=== PATIENT | female | born 1985 | race Hispanic/Latino ===

== ENCOUNTER 2018-11-17 12:17 | Emergency (ER) | payer OTHER ==
[2018-11-17 12:37] VITALS: TEMP 98.4
[2018-11-17] MEDS ORDERED: Sodium Chloride 0.9% 1,000 ML IV STA (13:20)
--- NOTE | 2018-11-17 13:23 | ED PDOC ---
HPI: Female Pain Time Seen by Provider: 11/17/18 13:08 Chief Complaint (Nursing): Female Genitourinary Chief Complaint (Provider): Pelvic cramps History Per: Patient History/Exam Limitations: no limitations Onset/Duration Of Symptoms: Days () Current Symptoms Are (Timing): Better Additional Complaint(s): Pt. with pelvic cramping and vaginal bleeding, worse today. Dr. Draper sent pt. to the ER for eval. Had US and blood work 2 weeks ago and US showed 2 weeks off dates. Had bhcg in last day or so and is 5000 points less then 2 weeks ago. No weakness, dizziness, dysuria, back pain, headaches. Past Medical History Reviewed: Nursing Documentation, Vital Signs Vital Signs: Last Vital Signs Temp 98.4 F 11/17/18 12:30 Pulse 123 H 11/17/18 12:30 Resp 16 11/17/18 12:30 BP 119/76 11/17/18 12:30 Pulse Ox 99 11/17/18 12:30 Primary Care Provider: Kush Draper - Medical History PMH: No Chronic Diseases - Surgical History Surgical History: No Surg Hx - Family History Family History: States: Unknown Family Hx - Allergies Allergies/Adverse Reactions: Allergies Allergy/AdvReac Type Severity Reaction Status Date / Time Sulfa (Sulfonamide Allergy RASH Verified 11/17/18 12:53 Antibiotics) Review of Systems ROS Statement: Except As Marked, All Systems Reviewed And Found Negative Genitourinary Female: Positive for: Vaginal Bleeding, Pelvic Pain Physical Exam - Reviewed Nursing Documentation Reviewed: Yes Vital Signs Reviewed: Yes - Physical Exam Appears: Positive for: Non-toxic, No Acute Distress Head Exam: Positive for: ATRAUMATIC, NORMAL INSPECTION, NORMOCEPHALIC Skin: Positive for: Normal Color, Warm, DRY Eye Exam: Positive for: EOMI, Normal appearance, PERRL ENT: Positive for: Normal ENT Inspection Neck: Positive for: Normal, Painless ROM Cardiovascular/Chest: Positive for: Regular Rate, Rhythm Respiratory: Positive for: CNT, Normal Breath Sounds Gastrointestinal/Abdominal: Positive for: Soft, Tenderness (mild across lower pelvic) Back: Positive for: Normal Inspection. Negative for: L CVA Tenderness, R CVA Tenderness Extremity: Positive for: Normal ROM. Negative for: Tenderness Neurological/Psych: Positive for: Awake, Alert, Normal Tone - Laboratory Results Result Diagrams: 11/17/18 13:20 11/17/18 13:20 - ECG O2 Sat by Pulse Oximetry: 99 - Progress ED Course And Treament: 1457: Stable. AAOx3. Dr. Ruiz to fu on US and labs. Disposition - Clinical Impression Clinical Impression: Threatened - Patient ED Disposition Is Patient to be Admitted: Transfer of Care - Disposition Disposition Time: 14:58 Condition: STABLE Patient Signed Over To: Nella Ruiz
[2018-11-17 13:48] LABS: BASO % 0.3 % (0.0-2.0); EOS % 0.2 % (0.0-4.0); HEMOGLOBIN 12.8 g/dL (12.0-16.0); LYMPH # 1.5 K/uL (1.0-4.3); LYMPH % 11.3 % (20.0-40.0); MEAN CELL VOLUME 93.7 fl (81.0-99.0); MEAN CORPUSCULAR HEMOGLOBIN 31.3 pg (27.0-31.0); MEAN CORPUSCULAR HGB CONC 33.3 g/dL (33.0-37.0); MEAN PLATELET VOLUME 8.4 fl (7.2-11.7); MONO # 0.5 K/uL (0.0-0.8); MONO % 4.1 % (0.0-10.0); NEUT # 11.1 K/uL (1.8-7.0); NEUT % 84.1 % (50.0-75.0); RBC 4.1 Mil/uL (3.80-5.20); WHITE BLOOD COUNT 13.2 K/uL (4.8-10.8)
[2018-11-17 13:58] LABS: ALB/GLOB RATIO 1.3 (1.0-2.1); ALBUMIN 4.9 g/dL (3.5-5.0); BLOOD UREA NITROGEN 13 mg/dl (7-17); CALCIUM 9.6 mg/dL (8.4-10.2); GFR NON-AFRICAN AMERICAN > 60
[2018-11-17 14:08] LABS: ALT/SGPT 26 U/L (9-52); AST/SGOT 38 U/L (14-36)
--- NOTE | 2018-11-17 15:09 | ED PDOC ---
- Laboratory Results Result Diagrams: 11/17/18 13:20 11/17/18 13:20 Lab Results: Total Bilirubin 0.7 mg/dl (0.2-1.3) 11/17/18 13:20 AST 38 U/L (14-36) H 11/17/18 13:20 ALT 26 U/L (9-52) 11/17/18 13:20 Alkaline Phosphatase 66 U/L (38-126) 11/17/18 13:20 Total Protein 8.7 G/DL (6.3-8.2) H 11/17/18 13:20 Albumin 4.9 g/dL (3.5-5.0) 11/17/18 13:20 Globulin 3.7 gm/dL (2.2-3.9) 11/17/18 13:20 Albumin/Globulin Ratio 1.3 (1.0-2.1) 11/17/18 13:20 Beta HCG, Quant 3961.20 mIU/mL 11/17/18 13:20 - ECG O2 Sat by Pulse Oximetry: 99 (RA) Pulse Ox Interpretation: Normal Medical Decision Making Medical Decision Making: Time: 1500 -- Patient endorsed to me by Dr. Young, pending US, labs, CHARGE COORDINATOR consult, re- evaluation and final ER disposition. Time: 1605 Accession No. : [id number] Patient Name / ID : JOVANA TAVARES / [id number] Exam Date : 11/17/2018 15:36:07 ( Approved ) Study Comment : Sex / Age : F / 32Y Creator : Mckenzie Goldberg Dictator : Mckenzie Goldberg Sample Worker : [employer] Control Room Operator : Mckenzie Goldberg Approver2 : Report Date : 11/17/2018 16:05:58 My Comment : Date of service: 11/17/2018 HISTORY: preg and pain COMPARISON: None available. TECHNIQUE: Transabdominal and transvaginal real-time scanning. Doppler applied FINDINGS: UTERUS: Measures 8.1 x 3.8 x 5.0 cm. Normal in size and appearance. No fibroid or other mass lesion Within the uterine cavity there is an irregularly elongated gestational sac with embryonic pole in this lower uterine segment near the cervix. This pole has no cardiac activity demonstrated on M-mode.-an in progress is inferred. The mean sac diameter is 2.2 cm corresponding to 6 weeks 5 days. The crown-rump length pole is 0.5 cm corresponding to 6 weeks 1 day. CERVIX: 1.5 cm in length. Elongated irregularly shaped gestational sac low in position near the lower uterine segment cervix with embryonic pole without cardiac activity findings concerning for an in progress. RIGHT OVARY: Measures 0.6 x 1.1 x 2.3 cm cm. A small corpus luteal complex cyst is inferred 1.1 x 0.6 x 1.1 normal flow. LEFT OVARY: Measures 1.6 x 1.3 x 1.5 cm. No solid mass. Normal flow. FREE FLUID: No significant free fluid noted. OTHER FINDINGS: None. IMPRESSION: Irregularly shaped (elongated and flattened in appearance) gestational sac also abnormal in position low near the lower uterine segment/cervix. Within this abnormal appearing gestational sac is a tiny embryonic pole without cardiac acti vity. An in progress is the estimated age by ultrasound parameters is 6 weeks 3 days +/-0 weeks 3 days.. This contrasts with the clinical dates by LMP (09/07/2018 of a gestational age by LMP of 10 weeks 1 day. Clinical follow- up recommended. Comments: Study marked for PA review . Time: 1625 -- Discussed with patient findings that are consistent with miscarriage. Patient reports of experiencing severe pain this morning that had decreased since arrival. However, patient notes pain returned after getting her US. CHARGE COORDINATOR, Dr. Abdalla called. -- Discussed with Dr. Abdalal, reviewed findings and advised patient to go directly to his office today. At the office, he can review option with her including possibility of misoprostol or expectant management after his evaluation. Discussed with patient plan of care. Questions and concerns answered and addressed Scribe Attestation: Documented by Will Ramirez, acting as a scribe for Nella Ruiz MD. Provider Scribe Attestation: All medical record entries made by the Scribe were at my direction and personally dictated by me. I have reviewed the chart and agree that the record accurately reflects my personal performance of the history, physical exam, medical decision making, and the department course for this patient. I have also personally directed, reviewed, and agree with the discharge instructions and disposition. Disposition - Clinical Impression Clinical Impression: Spontaneous - POA Present On Arrival: None - Disposition Referrals: Kush Abdalla DO [Staff Provider] - 11/17/18 (GO DIRECTLY TO DR ABDALLA'S OFFICE FOR FURTHER MANAGEMENT) Disposition: Routine/Home Disposition Time: 16:20 Condition: STABLE Prescriptions: Ibuprofen [Motrin Tab] 600 mg PO Q8 PRN #60 tab PRN Reason: Pain, Moderate (4-7) traMADol [Ultram] 50 mg PO TID PRN #15 tab PRN Reason: SEVERE PAIN ONLY Instructions: Miscarriage (DC) Forms: Opioid Discharge Information
--- NOTE | 2018-11-17 16:09 | US ---
Date of service: 11/17/2018 HISTORY: preg and pain COMPARISON: None available. TECHNIQUE: Transabdominal and transvaginal real-time scanning. Doppler applied FINDINGS: UTERUS: Measures 8.1 x 3.8 x 5.0 cm. Normal in size and appearance. No fibroid or other mass lesion Within the uterine cavity there is an irregularly elongated gestational sac with embryonic pole in this lower uterine segment near the cervix. This pole has no cardiac activity demonstrated on M-mode.-an in progress is inferred. The mean sac diameter is 2.2 cm corresponding to 6 weeks 5 days. The crown-rump length pole is 0.5 cm corresponding to 6 weeks 1 day. CERVIX: 1.5 cm in length. Elongated irregularly shaped gestational sac low in position near the lower uterine segment cervix with embryonic pole without cardiac activity findings concerning for an in progress. RIGHT OVARY: Measures 0.6 x 1.1 x 2.3 cm cm. A small corpus luteal complex cyst is inferred 1.1 x 0.6 x 1.1 normal flow. LEFT OVARY: Measures 1.6 x 1.3 x 1.5 cm. No solid mass. Normal flow. FREE FLUID: No significant free fluid noted. OTHER FINDINGS: None. IMPRESSION: Irregularly shaped (elongated and flattened in appearance) gestational sac also abnormal in position low near the lower uterine segment/cervix. Within this abnormal appearing gestational sac is a tiny embryonic pole without cardiac activity. An in progress is the estimated age by ultrasound parameters is 6 weeks 3 days +/-0 weeks 3 days.. This contrasts with the clinical dates by LMP (09/07/2018 of a gestational age by LMP of 10 weeks 1 day. Clinical follow-up recommended. Comments: Study marked for PA review .
[2018-11-17 16:37] VITALS: BP 110/66; PULSE 105; RESP 19
[2018-11-17 17:11] VITALS: O2SAT 99
== END 2018-11-17 16:37 | disposition home or self-care (01) ==
LOC: H.ER 12:17
DX: O03.9 Complete or unspecified spontaneous abortion without complication (principal); Z3A.10 10 weeks gestation of pregnancy; Z88.2 Allergy status to sulfonamides
CPT/HCPCS: 76817; 80053; 81025; 84702; 85025; 86850; 86900; 99285; J7030